=== PATIENT | female | born 1985 | race Caucasian/White ===

== ENCOUNTER → 2020-03-07 | Outpatient (CLI) | payer OTHER | LOC: KOH-I 15:38 | DX: M25.512 Pain in left shoulder (principal); G89.29 Other chronic pain | CPT/HCPCS: 73030 ==

== ENCOUNTER → 2020-03-15 | Outpatient (CLI) | payer OTHER | LOC: HEART 5 08:22 | DX: R00.2 Palpitations (principal) ==